=== PATIENT | male | born 1975 | race African-American/Black ===

== ENCOUNTER 2018-05-14 08:00 | Emergency (ER) | payer OTHER ==
[~2018-05-14] VITALS: Ht 188 cm; Wt 94.0 kg
[2018-05-14 08:01] VITALS: BP 132/88
[2018-05-14] MEDS ORDERED: BACITRACIN ZINC OINT 500U/GM, 0.9 GM ONE (09:57)
== END 2018-05-14 10:33 | disposition home or self-care (01) ==
LOC: ED 09:30
DX: S61.214A Laceration without foreign body of right ring finger without damage to nail, initial encounter (principal); X58.XXXA Exposure to other specified factors, initial encounter; Y93.89 Activity, other specified; Y92.009 Unspecified place in unspecified non-institutional (private) residence as the place of occurrence of the external cause; Y99.8 Other external cause status
CPT/HCPCS: 12001; 12011; 99284

== ENCOUNTER 2018-09-22 12:33 | Emergency (ER) | payer OTHER ==
[~2018-09-22] VITALS: Ht 188 cm; Wt 97.0 kg
[2018-09-22 12:35] VITALS: BP 127/91
[2018-09-22] MEDS ORDERED: KETOROLAC 30 MG/1 ML IM ONE (13:30)
== END 2018-09-22 13:39 | disposition home or self-care (01) ==
LOC: ED 12:56
DX: B35.3 Tinea pedis (principal); E78.00 Pure hypercholesterolemia, unspecified; F17.200 Nicotine dependence, unspecified, uncomplicated
CPT/HCPCS: 99283

== ENCOUNTER 2019-01-26 12:40 | Emergency (ER) | payer OTHER ==
[~2019-01-26] VITALS: Ht 188 cm; Wt 94.0 kg
[2019-01-26 12:43] VITALS: BP 128/84
[2019-01-26] MEDS ORDERED: ASPIRIN 81 MG TABLET CHEW PO ONE (13:00)
--- NOTE | 2019-01-26 13:33 | NUR ---
NO ANSWER IN LOBBY. LAB UNABLE TO FIND PT IN LOBBY EARLIER.
== END 2019-01-26 13:43 | disposition left against medical advice (07) ==
LOC: ED 13:37
DX: M79.602 Pain in left arm (principal)
CPT/HCPCS: 93005; 99283